=== PATIENT | female | born 1975 | race Caucasian/White ===

== ENCOUNTER → 2019-10-12 | Outpatient (CLI) | payer BC ==
--- NOTE | 2019-10-12 08:58 | KCIC ---
PELV[facility] ULTRASOUND History: Reason: ABNORMAL UTERINE BLEEDING / Spl. Instructions: / History: Comparison: None. Technique: Grayscale and color Doppler imaging of the pelvis was performed using transabdominal and transvaginal technique. Findings: The uterus measures 5.1 x 9.6 x 4.3 cm. Slightly lower positioning of IUD within the endometrial canal. The endometrial stripe measures 6.7 mm. Right ovary measures 2.7 x 2.7 x 1.8 cm. Dominant right ovarian follicle measures 2.1 cm. Normal blood flow to the right ovary. Left ovary not identified due to overlying structures. No adnexal masses are seen. IMPRESSION: 1. Slightly lower positioning of IUD within the endometrial canal. Recommend clinical correlation. 2. Left ovary not identified. Electronically signed by: José Miguel Encinas DO (10/12/2019 8:55 AM) [id number]
--- NOTE | 2019-10-12 10:54 | KCIC ---
Bilateral digital diagnostic mammogram with tomosynthesis and left breast ultrasound Reason for examination: Left nipple discoloration and upper subareolar lump Comparison is made to previous study dated mammogram and breast ultrasound February 11, 2019 diagnostic imaging centers Routine CC and MLO digital views obtained. Interpretation was made with the benefit of CAD. Mammogram: The skin and nipples show no abnormalities. No abnormal lymph nodes are seen. The breast parenchyma is scattered fibroglandular elements. (Breast density: Category B.) There are no suspicious masses, suspicious calcifications or architectural distortions. The left nipple areola complex is thicker in density than the contralateral nipple areola. There are some punctate and coarse calcifications which have developed within the left upper areola since the prior exam. Left axillary lymph nodes are more conspicuous since the prior exam the largest of which measures 0.9 cm within the range of normal in size. ULTRASOUND: The left nipple areola demonstrates thickening and areas of heterogeneous hypoechogenicity as well as areas of calcification at the clinical area of concern, and mild subareolar duct ectasia, however there is no subareolar mass, distortion or shadowing of the breast tissue directly. There is no fluid collection. There is no discrete edema of the skin or soft tissue. Separately at the left upper outer breast 2:00 position there is a 6 mm oval circumscribed hypoechoic nonshadowing, complicated cyst or fibroadenoma, probably benign. No axillary adenopathy evident there are normal-appearing lymph nodes within cortex. Impression: Abnormal thickening and sonographic hypoechogenicity of the left nipple areola complex and new upper areola intradermal microcalcifications at the clinical area concern. No discrete breast tissue mass. These findings could be indicative of a chronic inflammatory process or could be indicative of neoplastic Paget's disease of the breast. Consultation with a breast surgeon is advised. Findings were discussed with the patient time of exam. These results were called to Dr. Sargent at 10:40 am, 10/12/2019. BI-RADS Category 4: Suspicious. "Our facility is accredited by the [employer] Mammography Program." This patient's information has been entered into A reminder system for the patient to be notified with the results of her examination and a target date for the next mammogram. Electronically signed by: Ronald Nathan MD (10/12/2019 10:51 AM) [place] [id number]
== END | disposition home or self-care (01) ==
LOC: KCIC US 08:02
PROVIDERS: ATTEND Obstetrics & Gynecology
DX: Z01.419 Encounter for gynecological examination (general) (routine) without abnormal findings (principal); N93.0 Postcoital and contact bleeding; N60.42 Mammary duct ectasia of left breast; R92.1 Mammographic calcification found on diagnostic imaging of breast
CPT/HCPCS: 76641; 76856; 77066